=== PATIENT | female | born 1945 | race Two or more races ===

== ENCOUNTER → 2022-09-07 08:00 | Outpatient (CLI) | payer OTHER ==
[~2022-09-07] VITALS: Ht 152.4 cm; Wt 60.8 kg
[~2022-09-07 08:00] MED LIST: ALENDRONATE SOD70 MG PO; COZAAR100 MG PO; LEVOTHYROXINE25 MCG PO; METFORMIN HCL500 M3 PO
== END | disposition home or self-care (01) ==
LOC: LAB 08:00 → EDSTATUS 09-12 08:45 → LDR 09-12 08:45
PROVIDERS: ATTEND Colon & Rectal Surgery
DX: Z03.818 Encounter for observation for suspected exposure to other biological agents ruled out (principal); Z20.822 Contact with and (suspected) exposure to COVID-19

== ENCOUNTER 2022-10-26 11:15 | Inpatient (IN) | payer OTHER ==
[~2022-10-26] VITALS: Ht 162.6 cm; Wt 74.8 kg
[2022-10-26] MEDS ORDERED: HYDRALAZINE HC100 MG PO (14:13)
[2022-10-26] MEDS ORDERED: HYDROCHLOROTHIA25 MG PO (14:13)
[2022-10-26] MEDS ORDERED: PRAVASTATIN SOD20 MG PO (14:14)
[2022-10-26] MEDS ORDERED: CARVEDILOL12.5 MG (14:14)
[2022-11-02] MEDS ORDERED: LATANOPROST2.5 ML (11:24)
[2022-11-02] MEDS ORDERED: SYNTHROID50 MCG (11:24)
[2022-11-02] MEDS ORDERED: LINZESS145 MCG (11:24)
[2022-11-02] MEDS ORDERED: DICYCLOMINE HCL20 MG (11:24)
[2022-11-02] MEDS ORDERED: GLIPIZIDE10 MG (11:25)
[2022-11-02] MEDS ORDERED: LEVOTHYROXINE50 MCG (11:25)
[2022-11-02] MEDS ORDERED: PANTOPRAZOLE SO40 MG (11:25)
[2022-11-02] MEDS ORDERED: MONTELUKAST SOD10 MG (11:25)
[2022-11-02] MEDS ORDERED: CHLORTHALIDONE25 MG (11:25)
[2022-11-02] MEDS ORDERED: ST. JOSEPH ASPI81 M2 (11:25)
== END 2022-11-03 20:19 | disposition home or self-care (01) | DRG 330 ==
LOC: SURG 10-31 07:00 → O/R 10-31 07:21 → SURH 10-31 07:21 → SURG 10-31 11:15 → SURH 10-31 22:56
PROVIDERS: ADMIT Colon & Rectal Surgery; ATTEND Colon & Rectal Surgery
PROC: 0DJD8ZZ Inspection of Lower Intestinal Tract, Via Natural or Artificial Opening Endoscopic (ICD-10-PCS; 2022-10-31)
PROC: 0DTN4ZZ Resection of Sigmoid Colon, Percutaneous Endoscopic Approach (ICD-10-PCS; principal; 2022-10-31 07:00)
DX: K57.32 Diverticulitis of large intestine without perforation or abscess without bleeding (principal); K92.1 Melena; I11.9 Hypertensive heart disease without heart failure